=== PATIENT | female | born 1975 | race Caucasian/White ===

== ENCOUNTER 2018-11-21 16:59 | Emergency (ER) | payer SELFPAY ==
[~2018-11-21] VITALS: Ht 160 cm; Wt 133.5 kg
[~2018-11-21 16:59] MED LIST: AUGMENTIN875 MG PO; BUPROPION100 MG PO; CELEXA20 M1 OR; CIPROFLOXACN500 MG PO; FLOXIN OTIC OT; HALDOL5 MG OR; LORTAB 10 OR; NO HOME MEDS; PREVACID30 M2 PO; PREVPAC OR; RESTORIL15 MG OR; TRAZODONE50 MG PO; WELLBUTRIN150 MG OR; ZOFRAN ODT4 MG PO; ZOLOFT50 MG PO
[2018-11-21 18:17] LABS: HEMATOCRIT 38.5 % (37.0-47.0); HEMOGLOBIN 11.7 g/dl (12.0-16.0); IMMATURE GRANULOCYTES 0.4 % (0.0-5.0); MEAN CELL VOLUME 87.3 fL CALC (80.0-100.0); MEAN CORPUSCULAR HGB 26.5 pG CALC (26.0-32.0); MEAN CORPUSCULAR HGB CONC 30.4 g/L CALC (32.0-36.0); NEUT# 7.78 thou/uL (2.00-7.15); RED BLOOD COUNT 4.41 mill/uL (4.20-5.60); RED CELL DISTRI WIDTH 14.9 % (11.5-15.5)
[2018-11-21 18:33] LABS: ALBUMIN 3.7 g/dL (3.2-5.0); ALKALINE PHOSPHATASE 114 u/l (38-126); ANION GAP 15 (6-22 (CALC)); BILIRUBIN, TOTAL 0.3 mg/dL (0.0-1.4); BUN 15 mg/dL (7-17); BUN/CREATININE RATIO 21 (12-20 (CALC)); CARBON DIOXIDE 23 mmol/l (22-30); CHLORIDE 103 mmol/l (95-108); CREATININE 0.7 mg/dL (0.5-1.0); GFR > 60 ML/MIN (>=60 (CALC)); GFR FOR AFR.AMER. > 60 ML/MIN (>=60 (CALC)); LIPASE 35 u/l (23-300); POTASSIUM 4.4 mmol/l (3.5-5.1); SGOT/AST 22 u/l (14-36); SODIUM 136 mmol/l (137-146)
[2018-11-21 19:15] LABS: URINE BILIRUBIN - DIPSTICK NEGATIVE (NEGATIVE); URINE BLOOD DIPSTICK NEGATIVE (NEGATIVE); URINE COLOR YELLOW; URINE GLUCOSE - DIPSTICK NEGATIVE (NEGATIVE); URINE KETONE NEGATIVE (NEGATIVE); URINE LEUK ESTERASE NEGATIVE (NEGATIVE); URINE NITRITE - DIPSTICK NEGATIVE (Negative); URINE PH 5.5 (4.5-8.0); URINE PROTEIN - DIPSTICK NEGATIVE (NEG-TRACE); URINE UROBILINOGEN - DIPSTICK 0.2 E.U./dL (0.2)
[2018-11-21] MEDS ORDERED: MOTRIN800 MG PO (20:01)
[2018-11-21] MEDS ORDERED: LORTAB 5/3255 MG PO (20:01)
[2018-11-21 20:31] VITALS: BP 149/92
== END 2018-11-21 20:31 | disposition home or self-care (01) | DRG 446 ==
LOC: ED 16:59
PROVIDERS: Family Medicine
DX: K81.0 Acute cholecystitis (principal); R10.11 Right upper quadrant pain; R10.13 Epigastric pain; R11.2 Nausea with vomiting, unspecified; F17.200 Nicotine dependence, unspecified, uncomplicated
CPT/HCPCS: Q9967

== ENCOUNTER 2022-02-22 13:03 | Emergency (ER) | payer SELFPAY ==
[~2022-02-22] VITALS: Ht 160 cm; Wt 127.2 kg
[~2022-02-22 13:03] MED LIST changes: +LORTAB 5/3255 MG PO; +MOTRIN800 MG PO
[2022-02-22] MEDS ORDERED: RISPERIDONE4 MG PO (13:09)
[2022-02-22] MEDS ORDERED: GABAPENTIN300 M2 (13:11)
[2022-02-22 13:33] LABS: HEMATOCRIT 37.9 % (37.0-47.0); IMMATURE GRANULOCYTES 0.7 % (0.0-5.0); MEAN CORPUSCULAR HGB 27.2 pG CALC (26.0-32.0); NEUT# 6.45 thou/uL (2.00-7.15); RED BLOOD COUNT 4.05 mill/uL (4.20-5.60); RED CELL DISTRI WIDTH 15.5 % (11.5-15.5)
[2022-02-22 13:42] LABS: MEAN CELL VOLUME 93.6 fL CALC (80.0-100.0)
[2022-02-22 13:56] LABS: ALBUMIN 3.3 g/dL (3.2-5.0); ALKALINE PHOSPHATASE 122 u/l (38-126); ANION GAP 10 (6-22 (CALC)); BILIRUBIN, TOTAL 0.4 mg/dL (0.0-1.4); BUN 16 mg/dL (7-17); BUN/CREATININE RATIO 22 (12-20 (CALC)); C-REACTIVE PROTEIN 5.4 mg/dL (0-0.9); CARBON DIOXIDE 27 mmol/l (22-30); CHLORIDE 106 mmol/l (95-108); CREATININE 0.7 mg/dL (0.5-1.0); GFR FOR AFR.AMER. > 60 ML/MIN (>=60 (CALC)); GFR OTHER RACES > 60 ML/MIN (>=60 (CALC)); POTASSIUM 5.1 mmol/l (3.5-5.1); SGOT/AST 25 u/l (14-36); SODIUM 138 mmol/l (137-146); TOTAL PROTEIN 7.1 g/dL (6.3-8.2)
[2022-02-22] MEDS ORDERED: MEDDOSEPAK PO (17:34)
[2022-02-22] MEDS ORDERED: KEFLEX500 MG PO (17:34)
[2022-02-22] MEDS ORDERED: TRAMADOL HCL50 MG PO (17:34)
[2022-02-22 17:53] VITALS: BP 107/74
== END 2022-02-22 17:54 | disposition home or self-care (01) | DRG 603 ==
LOC: ED 13:03
PROVIDERS: Nurse Practitioner
DX: L03.115 Cellulitis of right lower limb (principal); M79.89 Other specified soft tissue disorders